=== PATIENT | male | born 1935 | race Caucasian/White ===

== ENCOUNTER 2016-04-19 11:11 | Emergency (ER) | payer OTHER, MEDICARE ==
[2016-04-19 11:18] VITALS: BP 133/90; PULSE 80; TEMP 97.5; BMI 25.1
--- NOTE | 2016-04-19 11:47 | PDOC ---
History of Present Illness - General Chief Complaint: Cold Symptoms Stated Complaint: STUFFY NOSE Time Seen by Provider: 04/19/16 11:30 History Source: Patient, Old Records Exam Limitations: No Limitations - History of Present Illness Initial Comments: 04/19/16 11:44 81-year-old male with history of hypertension, CVA in the past presents the emergency department with 2 day history of nonproductive cough and nasal congestioninability to sleep last night due to sinus/nasal congestion. The patient was concerned that he didn't have any medication at home to clear his nasal passages that would potentially not interfere with his current medication regimen. The patient denies chest pain, shortness of breath, fever, chills, headache, ear pain, sore throat. 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) Cardiac Disorders: Yes (A-FIB) CVA: Yes (X2 NO RESIDUAL DEFECTS) HTN: Yes Hypercholesterolemia: Yes Psychiatric Problems: Yes - Surgical History Appendectomy: Yes (1946) - Psycho/Social/Smoking Cessation Hx Anxiety: Yes Suicidal Ideation: No Smoking Status: Yes Smoking History: Former smoker Years of Tobacco Use: 1 Have you smoked in the past 12 months: No Number of Cigarettes Smoked Daily: 10 If you are a former smoker, when did you quit?: YEARS AGO Information on smoking cessation initiated: No Hx Alcohol Use: No Drug/Substance Use Hx: No Substance Use Type: None Review of Systems - Review of Systems Constitutional: Yes: See HPI HEENTM: Yes: See HPI Respiratory: No: Symptoms reported, See HPI, Cough, Orthopnea, Shortness of Breath, SOB with Exertion, SOB at Rest, Stridor, Wheezing, Productive cough, Hemoptysis, Other Cardiac (ROS): No: Symptoms Reported, See HPI, Chest Pain, Edema, Irregular Heart Rate, Lightheadedness, Palpitations, Syncope, Chest Tightness, Other ABD/GI: No: Symptoms Reported, See HPI, Abdominal Distended, Abd. Pain w/ defecation, Blood Streaked Bowels, Constipated, Diarrhea, Difficulty Swallowing , Nausea, Poor Appetite, Poor Fluid Intake, Rectal Bleeding, Vomiting, Indigestion, Abdominal cramping, Tarry Stools, Other : No: Symptoms Reported, See HPI, Burning, Dysuria, Discharge, Frequency, Flank Pain, Hematuria, Incontinence, Pain, Urgency, Testicular Mass, Testicular Swelling, Lesions, Testicular Pain, Other Musculoskeletal: No: Symptoms Reported, See HPI, Back Pain, Gout, Joint Pain, Joint Swelling, Muscle Pain, Muscle Weakness, Neck Pain, Joint Stiffness, Other *Physical Exam - Vital Signs Last Vital Signs Temp Pulse Resp BP Pulse Ox 97.5 F L 80 18 133/90 99 04/19/16 11:12 04/19/16 11:12 04/19/16 11:12 04/19/16 11:12 04/19/16 11:12 - Physical Exam Comments: 04/19/16 11:45 GENERAL: Well developed, well nourished. Awake and alert. No acute distress. HEENT: Normocephalic, atraumatic. PERRLA, EOMI. No conjunctival pallor. Sclera are non- icteric. Moist mucous membranes. Oropharynx is clear with mild erythema but no exudates.TM's are nonvisualized secondary to cerumen impaction. The nasal mucosa is erythematous and mildly edematous. There is no nasal discharge noted. NECK: Supple. Full ROM. No JVD. No lymphadenopathy. CARDIOVASCULAR: Regular rate and rhythm. No murmurs, rubs, or gallops. Distal pulses are 2+ and symmetric. PULMONARY: No evidence of respiratory distress. Lungs clear to auscultation bilaterally. No wheezing, rales or rhonchi. No cyanosis. No clubbing. No edema. No calf tenderness. SKIN: Warm and dry. Normal capillary refill. No rashes. No jaundice. NEUROLOGICAL: Alert, awake, appropriate. Cranial nerves 2-12 intact. Grossly non-focal exam. PSYCHIATRIC: Cooperative. Good eye contact. Appropriate mood and affect. *DC/Admit/Observation/Transfer Diagnosis at time of Disposition: Nasal congestion with rhinorrhea - Discharge Dispostion Disposition: HOME Condition at time of disposition: Stable Admit: No - Prescriptions Prescriptions: Levmetamfetamine [Nasal Decongestant Inhaler] 50 mg NS Q3H5XD PRN #1 inhaler PRN Reason: Nasal Congestion - Patient Instructions Printed Discharge Instructions: DI for Nasal Congestion Additional Instructions: Follow up with your primary care physician within one to 2 weeks. He may use the nasal inhaler every 2 hours as needed for nasal congestion. Return to the emergency department if your systems persist, worsen, or new symptoms arise.
== END 2016-04-19 11:57 | disposition home or self-care (01) ==
LOC: FER 11:11
DX: R09.81 Nasal congestion (principal); J34.89 Other specified disorders of nose and nasal sinuses; I10 Essential (primary) hypertension; Z86.73 Personal history of transient ischemic attack (TIA), and cerebral infarction without residual deficits; Z85.71 Personal history of Hodgkin lymphoma; E78.00 Pure hypercholesterolemia, unspecified; F99 Mental disorder, not otherwise specified; Z87.891 Personal history of nicotine dependence
CPT/HCPCS: 99282-25

== ENCOUNTER 2016-07-23 10:46 | Emergency (ER) | payer OTHER, MEDICARE ==
[2016-07-23 11:04] VITALS: BP 107/61; PULSE 88; TEMP 98.8; BMI 25.0
--- NOTE | 2016-07-23 11:16 | PDOC ---
History of Present Illness - General Chief Complaint: Sore Throat Stated Complaint: COUGH & SORE THROAT Time Seen by Provider: 07/23/16 10:56 History Source: Patient Exam Limitations: No Limitations - History of Present Illness Initial Comments: 07/23/16 11:14 81 y/o male with cough and congestion for 2 weeks. Complains of sore throat as well. No fever or chills. No SOB or chest pain. Denies sick contact of traveling. No N/V/d/C. 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) Cardiac Disorders: Yes (A-FIB) CVA: Yes (X2 NO RESIDUAL DEFECTS) HTN: Yes Hypercholesterolemia: Yes Psychiatric Problems: Yes - Surgical History Appendectomy: Yes (1946) - Psycho/Social/Smoking Cessation Hx Anxiety: Yes Suicidal Ideation: No Smoking Status: Yes Smoking History: Former smoker Years of Tobacco Use: 1 Have you smoked in the past 12 months: No Number of Cigarettes Smoked Daily: 10 If you are a former smoker, when did you quit?: YEARS AGO Information on smoking cessation initiated: No Hx Alcohol Use: No Drug/Substance Use Hx: No Substance Use Type: None Review of Systems - Review of Systems Able to Perform ROS?: Yes Is the patient limited Slovenian proficient: No Constitutional: No: Chills, Fever, Malaise HEENTM: Yes: Throat Pain Respiratory: Yes: Cough. No: Orthopnea, Shortness of Breath, Wheezing Cardiac (ROS): No: Chest Pain, Edema, Palpitations ABD/GI: No: Diarrhea, Nausea, Vomiting Musculoskeletal: No: Back Pain, Joint Pain, Muscle Pain Integumentary: No: Rash Neurological: No: Headache, Numbness, Paresthesia All Other Systems: Reviewed and Negative *Physical Exam - Vital Signs Last Vital Signs Temp Pulse Resp BP Pulse Ox 98.8 F 88 16 107/61 99 07/23/16 10:47 07/23/16 10:47 07/23/16 10:47 07/23/16 10:47 07/23/16 10:47 - Physical Exam General Appearance: Yes: Nourished, Appropriately Dressed. No: Apparent Distress HEENT: positive: EOMI, ASH, Normal ENT Inspection, Normal Voice, Pharynx Normal Neck: positive: Trachea midline, Normal Thyroid, Supple. negative: Tender, Rigid Respiratory/Chest: positive: Lungs Clear, Normal Breath Sounds. negative: Chest Tender, Respiratory Distress, Accessory Muscle Use Vascular Pulses: Femoral (R): 4+, Femoral (L): 4+, Carotid (R): 4+, Carotid (L) : 4+, Dorsalis-Pedis (R): 4+, Doralis-Pedis (L): 4+ Gastrointestinal/Abdominal: positive: Normal Bowel Sounds, Flat, Soft. negative : Tender, Organomegaly, Pulsatile Mass Lymphatic: negative: Adenopathy, Tenderness, Other Musculoskeletal: positive: Normal Inspection. negative: CVA Tenderness Extremity: positive: Normal Capillary Refill, Normal Inspection, Normal Range of Motion Integumentary: positive: Normal Color, Dry, Warm Neurologic: positive: store protection specialist II-XII NML intact, Fully Oriented, Alert, Normal Mood/ Affect, Normal Response, Motor Strength 5/5 ED Treatment Course - ADDITIONAL ORDERS Additional order review: 07/23/16 11:16 Pt appears to have a URI, will perform CXR. 07/23/16 11:38 Pt is doing well, will treat for a chronic bronchitis CXR shows NAD Pt is in agreement with plan - RADIOLOGY Radiology Studies Ordered: Category Date Time Status CHEST PA & LAT [RAD] Stat Radiology 07/23/16 11:13 Ordered *DC/Admit/Observation/Transfer Diagnosis at time of Disposition: Bronchitis - Discharge Dispostion Disposition: HOME Condition at time of disposition: Good Admit: No - Patient Instructions Printed Discharge Instructions: DI for Chronic Bronchitis Additional Instructions: Z pack as directed Fluids, rest, Tylenol IF worsen return to ER
== END 2016-07-23 11:47 | disposition home or self-care (01) ==
LOC: FER 10:46
DX: J40 Bronchitis, not specified as acute or chronic (principal); C81.90 Hodgkin lymphoma, unspecified, unspecified site; Z86.73 Personal history of transient ischemic attack (TIA), and cerebral infarction without residual deficits; E78.00 Pure hypercholesterolemia, unspecified; F99 Mental disorder, not otherwise specified; Z87.891 Personal history of nicotine dependence; I48.91 Unspecified atrial fibrillation
CPT/HCPCS: 71020-TC; 99281-25

== ENCOUNTER 2017-04-01 08:10 | Emergency (ER) | payer OTHER, MEDICARE ==
[2017-04-01 08:27] VITALS: BP 157/95; PULSE 58; TEMP 97.7; BMI 23.5
--- NOTE | 2017-04-01 08:35 | PDOC ---
History of Present Illness - General Chief Complaint: Injury Stated Complaint: KNEE INJURY Time Seen by Provider: 04/01/17 08:17 History Source: Patient Exam Limitations: No Limitations - History of Present Illness Initial Comments: 04/01/17 08:29 82-year-old male history of prior CVA, hyperlipidemia, here today status post fall 1 week prior complaining of left knee pain. Patient states he sustained an abrasion to his left knee with superficial he has been fine Betadine initially and a dressing since then he now has some mild itching around the area of the wound also feels a little groove in the knee And was worried he might have sustained a fracture during his fall he has been ambulating without difficulty fever no chills no erythema no sick yellow drainage from the wound Past History - Past Medical History Allergies/Adverse Reactions: Allergies Allergy/AdvReac Type Severity Reaction Status Date / Time HORSE SERUM Allergy Severe Uncoded 04/19/16 11:12 Home Medications: Ambulatory Orders Clopidogrel Bisulfate [Plavix -] 75 mg PO HS 06/06/11 Montelukast Na [Singulair -] 10 mg PO HS 06/06/11 Simvastatin [Zocor] 40 mg PO HS 06/06/11 Escitalopram Oxalate [Lexapro -] 20 mg PO HS 12/13/12 Azithromycin [Zithromax -] 250 mg PO UTDICT #6 tab 07/23/16 Asthma: Yes 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) Cardiac Disorders: Yes (A-FIB) CVA: Yes (X2 NO RESIDUAL DEFECTS) COPD: No HTN: Yes Hypercholesterolemia: Yes Psychiatric Problems: Yes Other medical history: GLAUCOMA - Surgical History Abdominal Surgery: Yes (LAP) Appendectomy: Yes (1946) - Suicide/Smoking/Psychosocial Hx Smoking Status: Yes Smoking History: Former smoker Years of Tobacco Use: 1 Have you smoked in the past 12 months: No Number of Cigarettes Smoked Daily: 10 If you are a former smoker, when did you quit?: YEARS AGO Information on smoking cessation initiated: No Hx Alcohol Use: No Drug/Substance Use Hx: No Substance Use Type: None Review of Systems - Review of Systems Constitutional: No: Chills, Diaphoresis HEENTM: No: Eye Pain Respiratory: No: Cough Cardiac (ROS): No: Chest Pain Musculoskeletal: Yes: Joint Pain. No: Back Pain Integumentary: Yes: Pruritus, Other (abrasion) All Other Systems: Reviewed and Negative *Physical Exam - Vital Signs Last Vital Signs Temp Pulse Resp BP Pulse Ox 97.7 F 58 L 16 157/95 96 04/01/17 08:11 04/01/17 08:11 04/01/17 08:11 04/01/17 08:11 04/01/17 08:11 - Physical Exam General Appearance: Yes: Appropriately Dressed Neck: positive: Trachea midline Respiratory/Chest: positive: Lungs Clear, Normal Breath Sounds Cardiovascular: positive: Regular Rhythm, Regular Rate, S1, S2 Gastrointestinal/Abdominal: positive: Normal Bowel Sounds, Flat, Soft. negative : Tender Extremity: positive: Normal Capillary Refill, Normal Inspection, Normal Range of Motion, Other (left knee FROM. no laxity. patella no laxity. ) Integumentary: positive: Normal Color, Dry, Warm, Other (left knee wtih 2 x 3 cm superficial abrasion, granulating tissue. no surrounding erythema or exudate. ) Medical Decision Making - Medical Decision Making 04/01/17 08:36 Plan to x-ray of the left knee to rule out any underlying avulsion fracture. Superficial abrasion to the left knee recommend topical treatment bacitracin leaving wound open to air in the evening hours. No current signs of infection patient does have dry skin surrounding the area which could explain it's pruritic nature recommend moisture lotion to the area surrounding the wound *DC/Admit/Observation/Transfer Diagnosis at time of Disposition: Abrasion - Discharge Dispostion Condition at time of disposition: Improved - Referrals - Patient Instructions Printed Discharge Instructions: DI for Abrasion Additional Instructions: He should leave your wound open to air and nighttime to encourage healing. He can apply bacitracin ointment twice daily. Return for redness swelling or any concerns for infection your x-rays today were negative for any acute fracture or other abnormalities Follow-up with her primary care doctor within 1 week call to schedule - Post Discharge Activity
== END 2017-04-01 09:32 | disposition home or self-care (01) ==
LOC: FER 08:10
DX: S80.212A Abrasion, left knee, initial encounter (principal); I10 Essential (primary) hypertension; E78.00 Pure hypercholesterolemia, unspecified; F99 Mental disorder, not otherwise specified; J45.909 Unspecified asthma, uncomplicated; X58.XXXA Exposure to other specified factors, initial encounter; Y93.9 Activity, unspecified; Y92.9 Unspecified place or not applicable; I48.91 Unspecified atrial fibrillation
CPT/HCPCS: 73562-TC-LT; 99282-25

== ENCOUNTER 2018-07-16 14:41 | Emergency (ER) | payer OTHER, MEDICARE ==
[2018-07-16 15:06] VITALS: TEMP 98.5; BMI 24.8
--- NOTE | 2018-07-16 15:10 | PDOC ---
History of Present Illness <Beny Victoria - Last Filed: 07/16/18 17:12> - General History Source: Patient Exam Limitations: No Limitations - History of Present Illness Initial Comments: 07/16/18 16:05 The patient is a 83 year old male with a significant medical history of CVA, hyperlipidemia, Asthma, and hypertension who presents to the ED with irregular heart rate. The patient states he could not feel his steady pulse last night. The patient notes he called his adhesion tester's office and was told to come to the ED for further evaluation. The patient denies chest pain, shortness of breath, headache or dizziness. The patient denies fever, chills, nausea, vomit, diarrhea or constipation. 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) Cardiac Disorders: Yes (A-FIB) CVA: Yes (X2 NO RESIDUAL DEFECTS) COPD: No HTN: Yes Hypercholesterolemia: Yes Psychiatric Problems: Yes Other medical history: ANXIETY - Surgical History Abdominal Surgery: Yes ([place], SPLEENECTOMY) Appendectomy: Yes (1946) - Suicide/Smoking/Psychosocial Hx Smoking Status: Yes Smoking History: Never smoked Years of Tobacco Use: 1 Have you smoked in the past 12 months: No Number of Cigarettes Smoked Daily: 10 If you are a former smoker, when did you quit?: YEARS AGO Hx Alcohol Use: No Drug/Substance Use Hx: Yes (IN PAST MARIJUANA) Substance Use Type: None <Beny Victoria - Last Filed: 07/16/18 17:12> <Pilar Trinidad - Last Filed: 07/16/18 17:17> - Past Medical History Allergies/Adverse Reactions: Allergies Allergy/AdvReac Type Severity Reaction Status Date / Time HORSE SERUM Allergy Severe Uncoded 04/19/16 11:12 Home Medications: Ambulatory Orders Clopidogrel Bisulfate [Plavix -] 75 mg PO HS 06/06/11 Montelukast Na [Singulair -] 10 mg PO HS 06/06/11 Simvastatin [Zocor] 40 mg PO HS 06/06/11 Escitalopram Oxalate [Lexapro -] 20 mg PO HS 12/13/12 Review of Systems - Review of Systems Able to Perform ROS?: Yes Comments:: 07/16/18 16:05 A complete review of 10 out of 10 review of systems is taken and is negative apart from what is previously mentioned below and in the HPI. <Pilar Trinidad - Last Filed: 07/16/18 17:17> *Physical Exam - Vital Signs Last Vital Signs Temp Pulse Resp BP Pulse Ox 98.5 F 96 H 20 106/60 96 07/16/18 14:42 07/16/18 14:42 07/16/18 14:42 07/16/18 14:42 07/16/18 14:42 <Beny Victoria - Last Filed: 07/16/18 17:12> - Vital Signs Last Vital Signs Temp Pulse Resp BP Pulse Ox 98.5 F 96 H 20 106/60 96 07/16/18 14:42 07/16/18 14:42 07/16/18 14:42 07/16/18 14:42 07/16/18 14:42 - Physical Exam Comments: 07/16/18 16:06 Vitals: Triage Vital signs reviewed General Appearance: no acute distress, well nourished well developed, Head: Atraumatic, normocephalic Chest Wall: Nontender Cardiac: (+) irregular regular rate and rhythm, no murmurs, no rubs, no gallops , Lungs: Clear to auscultation bilateral, good air movement bilaterally, Extremities: Full range of motion to all extremities, no cyanosis, clubbing, or edema Skin: Warm and dry, no rashes or lesions, no petechiae Neuro: AOX3; Cranial Nerves 2-12 grossly c intact, Strength intact to all extremities, Sensation intact to all extremities, gait normal Psych: normal mood, normal affect <Pilar Trinidad - Last Filed: 07/16/18 17:17> ED Treatment Course - LABORATORY CBC & Chemistry Diagram: 07/16/18 15:49 07/16/18 15:49 <Beny Victoria - Last Filed: 07/16/18 17:12> - LABORATORY CBC & Chemistry Diagram: 07/16/18 15:49 07/16/18 15:49 - ADDITIONAL ORDERS Additional order review: 07/16/18 15:49 RBC 4.78 MCV 92.5 MCHC 31.6 L RDW 13.7 MPV 9.4 Neutrophils % 44.4 Lymphocytes % 38.0 Monocytes % 11.4 H Eosinophils % 4.4 Basophils % 1.8 <Pilar Trinidad - Last Filed: 07/16/18 17:17> Medical Decision Making - Medical Decision Making 07/16/18 17:12 Well-appearing no apparent distress history of A. fib last night patient states he was checking his pulse had a difficult time appreciating his pulse today he called his adhesion tester and his adhesion tester instructed to come to the emergency department for further evaluation Patient well-appearing no apparent distress EKG demonstrates A. fib [address] elevations or T-wave inversions Normal physical examination laboratory analysis within normal limits Patient will follow up with his adhesion tester this week. Findings, the need for follow-up and strict return instructions discussed with patient. <Beny Victoria - Last Filed: 07/16/18 17:12> - Medical Decision Making 07/16/18 16:06 Patient is a 83 year old male with a significant medical history of CVA, hyperlipidemia, Asthma, and hypertension who presents to the ED with irregular heart rate. <Pilar Trinidad - Last Filed: 07/16/18 17:17> *DC/Admit/Observation/Transfer - Discharge Dispostion Decision to Admit order: No <Beny Victoria - Last Filed: 07/16/18 17:12> - Attestations Scribe Attestion: 07/16/18 16:06 Documentation prepared by Pilar Trinidad, acting as medical director for Beny Victoria MD, <Pilar Trinidad - Last Filed: 07/16/18 17:17> Diagnosis at time of Disposition: Irregular heart beat - Discharge Dispostion Disposition: HOME Condition at time of disposition: Stable - Patient Instructions Printed Discharge Instructions: DI for Arrhythmias Additional Instructions: Follow-up with your adhesion tester this week. Return to the emergency department for any severe worsening symptoms or for any concerns.
[2018-07-16 15:53] LABS: BASO % 1.8 % (0-2.0); EOS % 4.4 % (0-4.5); HEMATOCRIT 44.3 % (35.4-49); MCH 29.2 pg (25.7-33.7); MCHC 31.6 g/dl (32.0-35.9); MEAN CELL VOLUME 92.5 fl (80-96); MEAN PLT VOLUME 9.4 fl (7.5-11.1); MONO % 11.4 % (3.8-10.2); NEUT % 44.4 % (42.8-82.8); PLATELET COUNT 240 K/MM3 (134-434); RBC 4.78 M/mm3 (4.00-5.60); RDW 13.7 % (11.9-15.9); WHITE BLOOD COUNT 7.6 K/mm3 (4.0-10.8)
[2018-07-16 16:59] LABS: ALBUMIN 3.4 g/dl (3.4-5.0); ALK PHOS 56 U/L (45-117); ANION GAP 7 MMOL/L (8-16); BILIRUBIN,TOTAL 0.8 mg/dl (0.2-1); BLOOD UREA NITROGEN 21 mg/dl (7-18); CALCIUM 8.7 mg/dl (8.5-10); CHLORIDE 102 mmol/L (98-107); CO2 27 mmol/L (21-32); CREATININE 1.3 mg/dl (0.55-1.3); GLUCOSE,RANDOM 79 mg/dl (74-106); SGOT/AST 21 U/L (15-37); SGPT/ALT 16 U/L (13-61); SODIUM 136 mmol/L (136-145); TOT PROT 6.7 g/dl (6.4-8.2)
[2018-07-16 17:38] VITALS: BP 121/75; PULSE 80
--- NOTE | 2018-07-17 09:49 | EKG ---
Test Reason : Blood Pressure : / mmHG Vent. Rate : 086 BPM Atrial Rate : 241 BPM P-R Int : 000 ms QRS Dur : 088 ms QT Int : 386 ms P-R-T Axes : 000 065 050 degrees QTc Int : 461 ms ATRIAL FIBRILLATION WITH A COMPETING JUNCTIONAL PACEMAKER SEPTAL INFARCT , AGE UNDETERMINED ABNORMAL ECG NO PREVIOUS ECGS AVAILABLE Confirmed by TESSA GÓMEZ MD ([id number]) on 07/17/2018 9:49:27 AM Referred By: DR RAMIREZ Confirmed By:TESSA GÓMEZ MD
== END 2018-07-16 17:38 | disposition home or self-care (01) ==
LOC: FER 14:41
DX: I49.9 Cardiac arrhythmia, unspecified (principal); E78.5 Hyperlipidemia, unspecified; J45.909 Unspecified asthma, uncomplicated; I10 Essential (primary) hypertension; Z86.73 Personal history of transient ischemic attack (TIA), and cerebral infarction without residual deficits; I48.91 Unspecified atrial fibrillation
CPT/HCPCS: 36415; 80053; 84484; 85025; 93005; 99282-25